=== PATIENT | male | born 1980 | race Hispanic/Latino ===

== ENCOUNTER 2021-08-06 08:50 | Outpatient (CLI) | payer OTHER ==
--- NOTE | 2021-08-06 12:37 | Ultrasound Report ---
ULTRASOUND ABDOMEN, COMPLETE INDICATION / CLINICAL INFORMATION: ABNORMAL LABS. COMPARISON: None available. FINDINGS: PANCREAS: Not well seen due to overlying bowel gas. ABDOMINAL AORTA: No significant abnormality. IVC: No significant abnormality. LIVER: The liver is diffusely echogenic. The liver is borderline enlarged at 15.3 cm. Main portal vei n is patent. GALLBLADDER: No significant abnormality. BILE DUCTS: No significant abnormality. Common bile duct measures 4 mm. KIDNEYS: Right: No significant abnormality. Left: No significant abnormality. SPLEEN: No significant abnormality. FREE FLUID: None. ADDITIONAL FINDINGS: None. IMPRESSION: 1. Hepatic steatosis. Signer Name: Dann Barney MD Signed: 08/06/2021 12:33 PM Workstation Name: [id number]
== END 2021-08-06 08:51 | disposition home or self-care (01) ==
LOC: US 08:50
PROVIDERS: ATTEND Specialist
DX: K76.0 Fatty (change of) liver, not elsewhere classified (principal)
CPT/HCPCS: 76700; 76705